=== PATIENT | male | born 1960 | race Caucasian/White ===

== ENCOUNTER 2017-06-18 09:12 | Day surgery (SDC) | payer OTHER ==
[~2017-06-18] VITALS: Ht 172.7 cm; Wt 90.4 kg
[~2017-06-18 09:12] MED LIST: ASPIRIN E.C. 8181 MG PO; FISH OIL CONC1000 MG PO; LIPITOR 80MG80 MG PO; MULTIPLE VITAMI1 TA5 PO; OSTEO-BI-FLEX 21 TAB PO
[2017-06-18] MEDS ORDERED: ELIQUIS 5MG PO (09:42)
[2017-06-18] MEDS ORDERED: NORVASC 5MG5 MG/TAB PO (09:42)
[2017-06-18] MEDS ORDERED: ALLEGRA ALLERG180 MG PO (09:43)
[2017-06-18] MEDS ORDERED: ULTRAM 50MG TAB50 MG PO (09:43)
[2017-06-18] MEDS ORDERED: TYLENOL 325MG325 MG PO (09:44)
[2017-06-18] MEDS ORDERED: GLUCOSAMINE/CHO1 CA4 PO (09:45)
[2017-06-18] MEDS ORDERED: MOTRIN 800800 MG/TAB PO (09:50)
[2017-06-18 10:04] VITALS: BP 110/70; PULSE 63; TEMP 97.9
[2017-06-18] MEDS ORDERED: VOLTAREN GEL 1%1 TU TP (10:16)
[2017-06-18 11:33] VITALS: BP 113/73; PULSE 74; TEMP 97.8
[2017-06-18 11:45] VITALS: BP 117/76; PULSE 52
[2017-06-18 12:00] VITALS: BP 123/73; PULSE 59
== END 2017-06-18 12:25 | disposition home or self-care (01) ==
LOC: SDCO 09:12
DX: Z12.11 Encounter for screening for malignant neoplasm of colon (principal); Z86.010 Personal history of colon polyps; K63.3 Ulcer of intestine; K52.9 Noninfective gastroenteritis and colitis, unspecified; K64.0 First degree hemorrhoids; K57.30 Diverticulosis of large intestine without perforation or abscess without bleeding; I10 Essential (primary) hypertension; Z86.711 Personal history of pulmonary embolism
CPT/HCPCS: J2250; J3010; J7030

== ENCOUNTER → 2017-07-02 | Outpatient (CLI) | payer OTHER ==
[~2017-07-02] MED LIST changes: +ALLEGRA ALLERG180 MG PO; +ELIQUIS 5MG PO; +GLUCOSAMINE/CHO1 CA4 PO; +MOTRIN 800800 MG/TAB PO; +NORVASC 5MG5 MG/TAB PO; +TYLENOL 325MG325 MG PO; +ULTRAM 50MG TAB50 MG PO; +VOLTAREN GEL 1%1 TU TP
== END ==
LOC: COL.RAD 10:22
DX: K52.9 Noninfective gastroenteritis and colitis, unspecified (principal)
CPT/HCPCS: Q9967